=== PATIENT | male | born 1990 | race African-American/Black ===

== ENCOUNTER 2018-03-18 12:25 | Emergency (ER) | payer MEDICAID ==
[~2018-03-18] VITALS: Ht 170.2 cm; Wt 99.7 kg
[2018-03-18 12:48] VITALS: BP 133/87
== END 2018-03-18 15:35 | disposition home or self-care (01) ==
LOC: ED 15:30
DX: S50.01XA Contusion of right elbow, initial encounter (principal); S60.212A Contusion of left wrist, initial encounter; W01.0XXA Fall on same level from slipping, tripping and stumbling without subsequent striking against object, initial encounter; Y93.89 Activity, other specified; Y92.410 Unspecified street and highway as the place of occurrence of the external cause; Y99.8 Other external cause status
CPT/HCPCS: 99283